=== PATIENT | female | born 1990 | race Caucasian/White ===

== ENCOUNTER 2022-05-15 00:18 | Emergency (ER) | payer OTHER, SELFPAY ==
--- NOTE | ~2022-05-15 | US_ITS ---
EXAMINATION: US OB <=14 wk fetus w TV DATE: 05/15/2022 02:30 INDICATION: Bleeding during first trimester TECHNIQUE: Real-time pelvic transabdominal and transvaginal ultrasound was performed. COMPARISON: None. FINDINGS: The uterus measures 7.8 x 3.9 x 4.8 cm. There is an intrauterine gestational sac. There is a small subchorionic hematoma adjacent to the gestational sac. A yolk sac is identified. The p ole is not yet identified. M-mode Doppler. The mean sac diameter measures 7 mm , which correlates wit h an estimated gestational age of 5 weeks and 3 day(s) (+/-) 3 day(s). The right ovary measures 3.2 x 1.7 x 1.4 cm. The left ovary measures 3.1 x 1.8 x 1.7 cm. There is nor mal vascular flow in the ovaries. There is no free fluid in the pelvis. IMPRESSION: 1. Live intrauterine with an estimated gestational age of 5 weeks and 3 day(s) (+/-) 3 day( s) and an estimated delivery date of 01/12/2023 based on mean sac diameter. 2. Small subchronic hematoma. Reviewed, dictated and finalized at location A. IMPRESSION: 1. Live intrauterine with an estimated gestational age of 5 weeks and 3 day(s) (+/-) 3 day(s) and an estimated delivery date of 01/12/2023 based on m patricio sac diameter. 2. Small subchronic hematoma.
[2022-05-15 00:22] VITALS: BP 127/72; PULSE 93; RESP 16; TEMP 36.9; O2SAT 100
--- NOTE | 2022-05-15 00:40 | ED.PREGNANCY ---
HPI - General Chief complaint: Vaginal Bleeding <Sheri Holman PA-C - Last Filed: 05/15/22 02:44> Stated complaint: 6wks preg, vaginal bleeding <Sheri Holman PA-C - Last Filed: 05/15/22 02:44> Time Seen by Provider: 05/15/22 00:29 <Sheri Holman PA-C - Last Filed: 05/15/22 02:44> Source: patient <Sheri Holman PA-C - Last Filed: 05/15/22 02:44> Mode of arrival: ambulatory <Sheri Holman PA-C - Last Filed: 05/15/22 02:44> Limitations: no limitations <Sheri Holman PA-C - Last Filed: 05/15/22 02:44> History of Present Illness HPI Narrative: This is a 31 year old , about 6 weeks , that presents to the ER for vaginal bleeding tonight. Associated with mild pelvic cramping. Reports she saw blood on the tissue when she wiped earlier. She has not had any other bleeding since. Denies fever. <Sheri Holman PA-C - Last Filed: 05/15/22 02:44> Related Data Allergies/Adverse reactions: Allergies Allergy/AdvReac Type Severity Reaction Status Date / Time Sulfa (Sulfonamide Allergy Intermediate Rash Verified 05/15/22 00:27 Antibiotics) <Sheri Holman PA-C - Last Filed: 05/15/22 02:44> Review of Systems Review of Systems: CONSTITUTIONAL: Denies fever GASTROINTESTINAL: Denies nausea, vomiting GENITOURINARY: Denies dysuria <Sheri Holman PA-C - Last Filed: 05/15/22 02:44> All systems reviewed & are unremarkable except as noted in HPI and below <Sheri Holman PA-C - Last Filed: 05/15/22 02:44> [facility] Past Medical History Medical History: Medical History (Updated 05/15/22 @ 02:29 by Sheri Holman PA-C) Factor V Leiden History of hypothyroidism <Sheri Holman PA-C - Last Filed: 05/15/22 02:44> Social History Social History: Social History (Updated 05/15/22 @ 00:41 by Sheri Holman PA-C) Smoking status: Never smoker <Sheri Holman PA-C - Last Filed: 05/15/22 02:44> Exam Narrative: GENERAL: Well-appearing, well-nourished, and in no acute distress. HEAD: Normocephalic, atraumatic. EYES: EOMI. CHEST: Clear to auscultation. No respiratory distress. No wheezes rales or rhonchi HEART: Regular rate and rhythm. No murmur heard. Normal peripheral pulses. ABDOMEN: Soft, nontender, nondistended, normal active bowel sounds. EXTREMITIES: Normal range of motion. No edema. SKIN: Warm, dry, no rash. NEURO: No focal deficits. Alert and oriented x3. PSYCH: Normal mood and affect PELVIC: Small amount of brown discharge in the vaginal vault, cervix closed <Sheri Holman PA-C - Last Filed: 05/15/22 02:44> Course [employer] PROGRAM[employer]/PA Physician Supervision For this encounter, I have reviewed the TERA documentation, treatment plan and medical decision making: I was available for consultation as needed. [] <Vaibhav Whipple DO - Last Filed: 05/15/22 05:19> Vital Signs Vital signs: Vital Signs Temperature 98.4 F 05/15/22 00:22 Pulse Rate 93 05/15/22 00:22 Respiratory Rate 16 05/15/22 00:22 Blood Pressure 127/72 05/15/22 00:22 Pulse Oximetry 100 05/15/22 00:22 Oxygen Delivery Room Air 05/15/22 00:22 Temperature 98.4 F 05/15/22 00:22 Pulse Rate 89 05/15/22 03:01 Respiratory Rate 18 05/15/22 03:01 Blood Pressure 127/72 05/15/22 00:22 Pulse Oximetry 98 05/15/22 03:01 Oxygen Delivery Room Air 05/15/22 00:22 <Sheri Holman PA-C - Last Filed: 05/15/22 02:44> Vital Signs Temperature 98.4 F 05/15/22 00:22 Pulse Rate 93 05/15/22 00:22 Respiratory Rate 16 05/15/22 00:22 Blood Pressure 127/72 05/15/22 00:22 Pulse Oximetry 100 05/15/22 00:22 Oxygen Delivery Room Air 05/15/22 00:22 Temperature 98.4 F 05/15/22 00:22 Pulse Rate 89 05/15/22 03:01 Respiratory Rate 18 05/15/22 03:01 Blood Pressure 127/72 05/15/22 00:22 Pulse Oximetry 98 05/15/22 03:01 Oxygen Delivery Room Air 05/15/22 00:22 <Vaibhav Whipple, DO - Last Filed: 08
[2022-05-15 01:01] LABS: Basophils Absolute Auto 0.1 K/mm3 (0.0-0.1); Basophils Percent Auto 0.6 % (0.2-1.2); Eosinophils Absolute Auto 0.1 K/mm3 (0-0.3); Eosinophils Percent Auto 1.3 % (0-4.4); Hematocrit 39.5 % (37.0-47.0); Hemoglobin 12.9 g/dL (12.0-15.0); Immature Granulocyte Absolute 0.02 K/mm3 (0.00-0.031); Immature Granulocyte Percent A 0.2 % (0-0.5); Lymphocytes Absolute Auto 2.13 K/mm3 (0.9-3.2); Lymphocytes Percent Auto 25.1 % (18.3-44.2); Mean Corpuscular HGB Conc 32.7 g/dl (32-36); Mean Platelet Volume 10.2 fl (7.4-10.4); Monocytes Absolute Auto 0.5 K/mm3 (0.1-0.6); Monocytes Percent Auto 5.9 % (2.6-8.5); Neutrophils Absolute Auto 5.7 K/mm3 (1.3-6.7); Neutrophils Percent Auto 66.9 % (45.5-73.1); Platelet Count Result 289 k/mm3 (150-375); Red Blood Count 4.03 M/mm3 (4.2-5.4); Red Cell Distribution Width 12.3 % (11.5-14.5); White Blood Count 8.5 K/mm3 (4.5-10.0)
[2022-05-15 03:01] VITALS: PULSE 89; RESP 18; O2SAT 98
== END 2022-05-15 03:03 | disposition home or self-care (01) ==
PROVIDERS: Emergency Provider Emergency Medicine; PCP Family Medicine
DX: O46.091 Antepartum hemorrhage with other coagulation defect, first trimester (principal); O99.281 Endocrine, nutritional and metabolic diseases complicating pregnancy, first trimester; E03.9 Hypothyroidism, unspecified; Z3A.01 Less than 8 weeks gestation of pregnancy
CPT/HCPCS: 36415; 76801; 76817; 81025; 84702; 85025; 85461; 99284

== ENCOUNTER 2022-08-17 12:07 | Emergency (ER) | payer OTHER, SELFPAY ==
--- NOTE | 2022-08-17 12:15 | ED.URI ---
HPI - URI/Sore Throat General Chief Complaint: Upper Respiratory Infection Stated Complaint: COUGH/RUNNY NOSE/SNEEZING Time Seen by Provider: 08/17/22 12:15 Source: patient and RN notes reviewed History of Present Illness HPI Narrative: Patient is a 32-year-old female who presents to the Urgent Care with complaints of cough, sneezing, runny nose, chills and sore throat. Patient states that she has been doing a cough medicine since Tuesday. States that she is 18 weeks . Denies any known fevers. No other acute complaints. No acute distress noted. Patient aware of the plan of care. Some parts of this dictation were generated by voice recognition software and may contain typographical and/or grammatical inaccuracies. Related Data Home Medications Medication Instructions Recorded Confirmed levothyroxine 75 mcg tablet mcg 08/17/22 Allergies Allergy/AdvReac Type Severity Reaction Status Date / Time Sulfa (Sulfonamide Allergy Intermediate Rash Verified 05/15/22 00:27 Antibiotics) Review of Systems Review of Systems: CONSTITUTIONAL: Reports of chills and sweats EYES: Denies visual changes, redness, or discharge. ENT: Reports rhinorrhea, congestion, sore throat CARDIOVASCULAR: Denies chest pain, palpitations, or edema. RESPIRATORY: Denies cough or dyspnea. GASTROINTESTINAL: Denies abdominal pain, nausea, vomiting, or diarrhea. GENITOURINARY: Denies dysuria or hematuria. SKIN: Denies rash or itching. MUSCULOSKELETAL: Denies back pain, joint pain, or myalgia. NEUROLOGIC: Denies headache, numbness, or weakness. All other systems reviewed are negative, except as documented in HPI. [facility] Past Medical History Medical History (Updated 08/17/22 @ 12:40 by JACKLYN Gutiérrez) Factor V Leiden History of hypothyroidism Social History Social History (Updated 05/15/22 @ 00:41 by Sheri Holman PA-C) Smoking status: Never smoker Comments At the time of my signature, I reviewed and agree with the nursing past medical, surgical, social, and family history. There is no relevant family history pertinent to the patient complaint. Exam Narrative: GENERAL: This is a well-nourished, well-developed patient, appears fatigued HEAD: normocephalic, atraumatic. EYES: PERRL. Sclera clear/white. Vision is grossly intact. EARS: External ears normal, auditory canals clear and without drainage, TMs normal without perforation. Hearing grossly intact. NOSE: External nose normal with no obvious nasal discharge, nares without redness, clear rhinorrhea. THROAT: Mucous membranes moist, posterior pharynx clear. Moderate postnasal drainage, absent tonsils NECK: Neck supple, non-tender without lymphadenopathy CARDIOVASCULAR: Regular rate and rhythm without murmurs, gallops, or rubs. RESPIRATORY: Clear to auscultation. Breath sounds equal bilaterally. No wheezes, rales, or rhonchi. SKIN: warm, intact with no suspicious lesions or rash, good texture and turgor. NEURO: awake, alert, and oriented to person, place and time. There were no obvious focal neurologic abnormalities. EXTREMITIES: No clubbing, cyanosis, or edema. Course Course Level of Care: Express Care Visit Vital Signs Vital signs: Vital Signs Temperature 98.7 F 08/17/22 12:26 Pulse Rate 102 H 08/17/22 12:26 Respiratory Rate 16 08/17/22 12:26 Blood Pressure 107/61 08/17/22 12:26 Pulse Oximetry 99 08/17/22 12:26 Oxygen Delivery Room Air 08/17/22 12:26 Temperature 98.7 F 08/17/22 12:26 Pulse Rate 102 H 08/17/22 12:26 Respiratory Rate 16 08/17/22 12:26 Blood Pressure 107/61 08/17/22 12:26 Pulse Oximetry 99 08/17/22 12:26 Oxygen Delivery Room Air 08/17/22 12:26 Reviewed MDM - URI/Sore Throat MDM Narrative Medical decision making narrative: Reviewed lab results with the patient. She is aware that strep swab was negative. Educated patient on culture we will call within 72 hours if culture is positive and antibiotics a
[2022-08-17 12:26] VITALS: BP 107/61; PULSE 102; RESP 16; TEMP 37.1; O2SAT 99
== END 2022-08-17 12:48 | disposition home or self-care (01) ==
PROVIDERS: Emergency Provider Nurse Practitioner Family; PCP Family Medicine
DX: J10.1 Influenza due to other identified influenza virus with other respiratory manifestations (principal); E03.9 Hypothyroidism, unspecified
CPT/HCPCS: 87081; 87804; 87880; 99213; G0463